=== PATIENT | male | born 1990 | race Caucasian/White ===

== ENCOUNTER 2023-10-06 01:32 | Emergency (ER) | payer OTHER ==
[~2023-10-06] VITALS: Ht 177.8 cm; Wt 102.1 kg
[~2023-10-06 01:32] MED LIST: ACEBUTCAFT PO; CEPH500 PO; CYCL10 PO; DIAZ5 PO; ERYT.5TO OS; FAMO20 PO; HYDACE5 PO; IBUP400 PO; IBUP800 PO; NAPR500 PO; NAPR550 PO; OXYACE5T PO; PENVK250 PO; PENVK500; PENVK500 PO; PRED20 PO; PROM25 PO; RANI150 PO; RXCEPH500 PO; RXCLIN PO; RXCYCL10 PO; RXHYDACE PO; RXIBUP800 PO; RXNAPNA550 PO; RXOXYACE PO; RXPROACE PO; RXPROM25S PR; RXTRAM50 PO; TOPI50 PO; TRAM50 PO
[2023-10-06 06:25] VITALS: BP 147/92
[2023-10-06] MEDS ORDERED: IBU600 MG PO (09:40)
[2023-10-06] MEDS ORDERED: AMOCLA875 PO (09:40)
== END 2023-10-06 10:02 | disposition home or self-care (01) ==
LOC: ER 01:32
DX: L03.115 Cellulitis of right lower limb (principal); M25.551 Pain in right hip; F17.210 Nicotine dependence, cigarettes, uncomplicated; G43.909 Migraine, unspecified, not intractable, without status migrainosus; Z88.5 Allergy status to narcotic agent
CPT/HCPCS: 73502; 73552; 96372; 99283-25; A9270; J1885

== ENCOUNTER 2024-10-18 06:06 | Emergency (ER) | payer OTHER ==
[~2024-10-18] VITALS: Ht 177.8 cm; Wt 104.3 kg
[~2024-10-18 06:06] MED LIST changes: +AMOCLA875 PO; +IBU600 MG PO
[2024-10-18] MEDS ORDERED: Morphine Sulfate 4 MG/1 ML Injection IV ONE ×2 (06:50→09:20)
[2024-10-18] MEDS ORDERED: Ondansetron 4 MG SoluTab SL ONE (06:50)
[2024-10-18 07:55] LABS: BASOPHILS ABSOLUTE AUTO 0.06 K/mm3 (0.00-0.23); BASOPHILS PERCENT AUTO 1 % (0-2); EOSINOPHILS PERCENT AUTO 1 % (0-6); Hematocrit 40.5 % (37.0-53.0); Hemoglobin 13.8 g/dL (13.5-17.5); IMMATURE GRAN ABSOLUTE AUTO 0.03 K/mm3 (0.00-0.10); IMMATURE GRAN PERCENT AUTO 0 % (0-1); LYMPHOCYTES ABSOLUTE AUTO 2.13 K/mm3 (0.84-5.20); LYMPHOCYTES PERCENT AUTO 18 % (21-46); MONOCYTES ABSOLUTE AUTO 1.31 K/mm3 (0.16-1.47); MONOCYTES PERCENT AUTO 11 % (4-13); Mean Corpuscular HGB 32.9 pg (26.0-34.0); Mean Corpuscular HGB Conc 34.1 g/dL (31.5-36.5); Mean Corpuscular Volume 96 fL (80-100); Mean Platelet Volume 9.7 fL (9.1-12.4); NEUTROPHILS ABSOLUTE AUTO 8.18 K/mm3 (1.96-9.15); NEUTROPHILS PERCENT AUTO 69 % (41-73); Platelet Count 358 K/mm3 (150-400); RDW Coefficient Variation 13.7 % (11.7-14.2); RDW Standard Deviation 48.4 fL (35.1-46.3); White Blood Cell Count 11.81 K/mm3 (4.00-11.30)
[2024-10-18 08:15] LABS: Albumin, Blood 3.7 g/dL (3.4-5.0); Albumin/Globulin Ratio 1.1 (0.8-1.8); Bilirubin, Total 1.2 mg/dL (0.1-1.0); Bun/Creatinine Ratio 15.2 (12.0-20.0); Calcium, Blood 8.4 mg/dL (8.5-10.1); Creatinine, Blood 0.99 mg/dL (0.60-1.20); Globulin, Blood 3.3 g/dL (2.2-4.0); Potassium, Blood 4.3 mmol/L (3.5-5.5)
[2024-10-18] MEDS ORDERED: Amoxicillin/Clavulanate K 875 MG Tab PO ONE (09:20)
[2024-10-18] MEDS ORDERED: Mag Hydrox/AL Hydrox/Simeth 30 ML UDC PO ONE (09:20)
[2024-10-18] MEDS ORDERED: Lidocaine 2% Viscous Soln 15 ML UDC PO ONE (09:20)
[2024-10-18] MEDS ORDERED: AMOCLA875 PO (09:24)
[2024-10-18 10:00] VITALS: BP 136/71
== END 2024-10-18 10:22 | disposition home or self-care (01) ==
LOC: ER 06:06
PROVIDERS: Emergency Medicine
DX: T52.91XA Toxic effect of unspecified organic solvent, accidental (unintentional), initial encounter (principal); J69.0 Pneumonitis due to inhalation of food and vomit; F17.200 Nicotine dependence, unspecified, uncomplicated; Z88.5 Allergy status to narcotic agent
CPT/HCPCS: 71045; 71260; 74177; 80053; 83605; 85025; 93005; 93010; 96374-59; 96376; 99284-25; A9270; J2270; Q9967